=== PATIENT | female | born 1940 | race Caucasian/White ===

== ENCOUNTER → 2017-02-22 | Outpatient (CLI) | payer MEDICARE, OTHER ==
[~2017-02-22] MED LIST: LSNP20T PO; METO-71 PO; NITR0.4T7 SL; OMEG1CAP24 PO
--- NOTE | 2017-02-22 17:59 | Diagnostic Imaging Report ---
PROCEDURE: MR imaging of the brain with and without contrast. TECHNIQUE: Multiplanar, multisequence MR imaging of the brain was performed with and without contrast. INDICATION: Brain neoplasm. COMPARISON: CT of the head 09/25/2016. FINDINGS: The ventricular sizes are normal. There are mildly prominent sulci and fissures compatible with mild cerebral parenchymal volume loss. Mild white matter disease is present consistent with small foci of signal abnormality in the bilateral centrum semiovale. Ependymitis granularis is also present, a normal variant. In the left parasagittal parietal cerebrum, a calcified extra-axial mass is present measuring 3.1 x 2.5 x 1.9 cm. This is unchanged in size from the prior CT scan. Normal expected flow voids are identified. There is no visible thrombus at the basilar tip on today's exam. With administration of intravenous contrast, there may be some mild enhancement of the extra-axial left parietal convexity mass. It has had some peripheral rim enhancement. There is mild edema subjacent to the left extra-axial mass. Examination is otherwise unremarkable. IMPRESSION: 1. Calcified left parasagittal parietal extra-axial mass consistent with meningioma with mild subjacent edema of the brain. 2. Mild white matter disease compatible with age-related change and/or chronic microvascular ischemic change. 3. No acute finding. Dictated by: Dictated on workstation # [id number]
== END ==
LOC: RAD 13:49
PROVIDERS: ATTEND Neurological Surgery
DX: D32.0 Benign neoplasm of cerebral meninges (principal)
CPT/HCPCS: 36415; 70553; 82565; 84520; A9579